=== PATIENT | female | born 1960 | race Caucasian/White ===

== ENCOUNTER 2023-05-19 14:11 | Emergency (ER) | payer SELFPAY ==
[~2023-05-19] VITALS: Ht 154.9 cm; Wt 77.1 kg
[2023-05-19] MEDS ORDERED: AMOXICILLIN500 M3 PO (17:27)
== END 2023-05-19 17:06 | disposition home or self-care (01) ==
LOC: ED 14:11
DX: J02.0 Streptococcal pharyngitis (principal)